=== PATIENT | female | born 1960 | race Caucasian/White ===

== ENCOUNTER 2016-08-14 16:59 | Emergency (ER) | payer MEDICAID ==
[~2016-08-14] VITALS: Ht 167.6 cm; Wt 76.4 kg
[~2016-08-14 16:59] MED LIST: BUPR75 PO; DIVA500T35 PO; DOXE25CA3 PO; FURO20 PO; GLYB5 PO; LEVO100T13 PO; LIB5 PO; METF500T4 PO; OLAN5TAB2 PO; SIMV20TA6 PO
[2016-08-14] MEDS ORDERED: TRAZ-144 PO (17:21)
[2016-08-14] MEDS ORDERED: FLUO-191 PO (17:21)
[2016-08-14] MEDS ORDERED: PRAZ5 PO (17:21)
[2016-08-14 17:26] LABS: GLUCOSE,POINT OF CARE 258 MG/DL (70-110)
[2016-08-14 21:11] LABS: GLUCOSE COMMENT 1 Doctor Notified; GLUCOSE,POINT OF CARE 216 MG/DL (70-110)
[2016-08-14] MEDS ORDERED: LORazepam 1 MG TABLET PO ONE (21:30)
[2016-08-14] MEDS ORDERED: MetFORMIN HCL 500 MG TABLET PO ONE (21:30)
[2016-08-14 22:11] LABS: GLUCOSE,POINT OF CARE 210 MG/DL (70-110)
[2016-08-14 23:33] VITALS: BP 127/85
== END 2016-08-14 23:41 | disposition home or self-care (01) ==
LOC: EMS 17:01
DX: E11.65 Type 2 diabetes mellitus with hyperglycemia (principal); F41.9 Anxiety disorder, unspecified; F10.20 Alcohol dependence, uncomplicated; E03.9 Hypothyroidism, unspecified; F17.200 Nicotine dependence, unspecified, uncomplicated; Y90.9 Presence of alcohol in blood, level not specified
CPT/HCPCS: 82962; 99284